=== PATIENT | female | born 1995 | race Hispanic/Latino ===

== ENCOUNTER 2018-10-01 12:29 | Inpatient (IN) | payer OTHER ==
[2018-10-01 12:47] VITALS: BMI 38.4
[2018-10-01] MEDS ORDERED: Lidocaine 1% (PF) 30 ML VIAL SC PRN (12:55)
[2018-10-01] MEDS ORDERED: NS / Oxytocin 40 units/1000ml 1,000 ML IV PRN (12:55)
[2018-10-01] MEDS ORDERED: Butorphanol Tartrate 1 MG/ML VIAL SLOW IVP PRN (12:55)
[2018-10-01] MEDS ORDERED: Ibuprofen 800 MG TAB PO PRN (12:55)
[2018-10-01] MEDS ORDERED: HYDROcodone/Acetaminophen 5/325 mg Tablet PO PRN ×2 (12:55)
[2018-10-01] MEDS ORDERED: Penicillin G Potassium 5 MILL.UNITS VIAL ONE (12:55)
[2018-10-01] MEDS ORDERED: Promethazine HCl 25 MG/ML VIAL IM PRN (12:55)
--- NOTE | 2018-10-01 12:59 | PDOC.LDHP ---
Labor and Delivery H&P HPI: Patient in Triage Encounter at [address] Crawford HPI: 22yo (Terms x 1 in past, one ectopic) at early term, here for contractions since 0900. No LOF. Some thick dsch (greenish) previously. No VB, no HEATH. Good FM. States GBS positive ("would need antibiotics in labor") Current gestational age (weeks): 38 (2 days) Dating criteria: last menstrual period Grav: 3 Para: 1 OB History Details: x 1 Current complications: none Abnormal US findings: No Past Medical History: [employer] HX: Dr Khan here in 2016 eval and treated for ectopic with MTX; Also, her notes back then stated CHLAMYDIA treatment. Current medications: pre-akash vitamins Allergies/Adverse Reactions: Allergies Allergy/AdvReac Type Severity Reaction Status Date / Time No Known Allergies Allergy Verified 10/01/18 12:53 Social history: none - Physical Exam Vital signs reviewed and normal: yes (118/72 Afebrile Pulse 108) General: NAD Heart: RRR Lungs: CTAB Abdomen: gravid (gravid, size consistent with dates; EFW approx 6#) FHT: category 1 Seth Ward contractions every: every 2-3 - Vaginal Exam cm dilated: 5 ( to 6cm; BOWI) Effacement: 75% (80%) Station: -1 - Assessment L&D Assessment: term patient in labor (Earlt term, suspected GBS pos by HX as chart not here) - Plan Plan: admit to L&D, GBS antibiotic prophylaxis, informed consent obtained, anesthesia consult for pain management, other (I have send Dr Crawford a text without HPI to inform him of the admission, awaiting confirmation)
[2018-10-01] MEDS ORDERED: Penicillin G Potassium 5 MILL.UNITS in Sodium Chloride 0.9% 100 ML IVPB SCH (13:00)
[2018-10-01] MEDS ORDERED: Fentanyl 4 mcg/Bup 0.1% Cadd 100 ML ONE (13:04)
[2018-10-01] MEDS: Lactated Ringer's 1,000 ML IV SCH ×2 (13:10→14:05)
[2018-10-01 13:21] LABS: Hemoglobin 9.8 g/dL (12.0-16.0); Mean Corpuscular HGB CONC 31.1 g/dL (32.0-36.0); Mean Corpuscular Hemoglobin 23.1 pg (25.0-35.0); Mean Corpuscular Volume 74.3 fL (78.0-98.0); Mean Platelet Volume 8.9 fL (7.4-10.4); Platelet Count 254 thou/uL (130-400); RBC Distribution Width 18.9 % (11.5-14.5); Red Blood Cell (RBC) Count 4.24 mill/uL (4.00-5.20); White Blood Cell (WBC) Count 16.1 thou/uL (4.8-10.8)
[2018-10-01 14:02] LABS: Syphilis Antibody Nonreactive (Nonreactive); Syphilis Antibody Index 0.03 S/CO (<1.00 Non-Reactive)
[2018-10-01 14:03] LABS: HBSAg Index 0.22 S/CO (0-0.99); HIV (1/2) Antibody/Antigen Non-Reactive (NonReactive); HIV 1/2 INDEX 0.14 S/CO (<1.00); Hep B Surf Ag Non-Reactive S/CO (NonReactive)
[2018-10-01] MEDS ORDERED: Lactated Ringer's 500 ML IV PRN (14:03)
[2018-10-01] MEDS ORDERED: ePHEDrine/0.9% NaCl/PF SYRINGE 50 mg/10 ml SLOW IVP PRN (14:03)
[2018-10-01] MEDS ORDERED: Eucerin (Mineral Oil/Petrolatum,White) 30 gm Jar TOP PRN (14:03)
[2018-10-01] MEDS ORDERED: Naloxone HCl 0.4 mg/ml Vial IVP PRN ×2 (14:03)
[2018-10-01] MEDS ORDERED: Communication Order-Pharmacy FS SCH (14:15)
[2018-10-01] MEDS ORDERED: Penicillin G 2.5 MILL.units 2.5 MILL.UNITS in Premix Bag 1 BAG IVPB SCH (17:00)
[2018-10-01] MEDS ORDERED: Milk Of Magnesia 30 ML UDCUP PO PRN (19:24)
[2018-10-01] MEDS ORDERED: Varicella virus, LIVE 0.5 ML VIAL SC ONE (19:24)
[2018-10-01] MEDS ORDERED: Bisacodyl 10 MG SUPP PR PRN (19:24)
[2018-10-01] MEDS ORDERED: Benzocaine/Menthol 20-0.5% 60 ML CAN TOP PRN (19:24)
[2018-10-01] MEDS ORDERED: diphenhydrAMINE 25 MG CAP PO PRN (19:24)
[2018-10-01] MEDS ORDERED: Lanolin Ointment 7 GM TUBE TOP PRN (19:24)
[2018-10-01] MEDS ORDERED: Measles/Mumps/Rubella 10 MCG/0.5 ML VIAL SC ONE (19:24)
[2018-10-01] MEDS ORDERED: Adacel (T-DAP) 0.5 ML SYRINGE IM ONE (19:24)
[2018-10-01] MEDS ORDERED: Acetaminophen/Codeine 30-300mg Tablet PO PRN ×2 (19:24)
--- NOTE | 2018-10-01 19:28 | PDOC.OPDEL ---
OB Operative/Delivery Note Delivery Dr/Surgeon: Victoriano Richards (RN assist as first assistant) Pre-Delivery Diagnosis: active labor Procedure/Post Delivery Dx: spontaneous vaginal delivery (I arrived within 1 min of being called, but patient progressed to over intact perineum with Marcella Richards (RN) acting as nurse first assist. I arrived as child was delivering. No NC, baby vigorous male.) Anesthesia: epidural - Findings A Sex: male - 1 min: 8 - 5 min: 9 - Additional Findings/Plan Placenta delivered: spontaneous (Ed at 1918, baby was at 1912) Repaired Obstetrical Laceration: none Estimated blood loss: 200; QBL pending Compilations/Other Findings: No NC No complications 3VC, no evidence lacerations Counts correct Post delivery plan: routine recovery
[2018-10-01] MEDS ORDERED: NS / Oxytocin 40 units/1000ml 1,000 ML IV SCH (19:30)
--- NOTE | 2018-10-01 20:02 | PDOC.EVN ---
Event Note - Event Note Event Note: I was just notifed that maternal temp is now 101.4...although , I will start amp and gent for presumed metritis
[2018-10-01] MEDS ORDERED: Gentamicin Sulfate 120 MG in Premix Bag 1 BAG IVPB SCH (20:15)
[2018-10-01] MEDS: Ampicillin 2 GM in Sodium Chloride 0.9% 100 ML IVPB SCH (21:21)
[2018-10-01] MEDS: Ibuprofen 800 MG TAB PO SCH (21:21)
[2018-10-01] MEDS: Docusate Calcium (SURFAK) 240 MG CAP PO SCH (21:21)
[2018-10-02] MEDS: Ampicillin 2 GM in Sodium Chloride 0.9% 100 ML IVPB SCH ×4 (03:03→21:13)
--- NOTE | 2018-10-02 05:09 | PDOC.PP ---
Post Progress Note Post Day #: 0 to 1 Subjective: No complaints, doing well...resting PO intake tolerated: yes Flatus: yes Ambulation: yes Vital Signs (12 hours) Temp Pulse Resp BP Pulse Ox 10/02/18 03:00 98.1 F 89 18 94/51 L 10/01/18 23:54 98.7 F 101 H 18 105/54 L 10/01/18 22:50 100.0 F H 108 H 20 99/49 L 10/01/18 21:50 99.6 F 104 H 20 108/57 L 95 Weight Weight 217 lb Tmax just after delivery was 101...last temp elevation was 100.0 at 2250 10/01 On IV Amp and gent - Physical Examination General: NAD Cardiovascular: no m/r/g Respiratory: clear to auscultation bilaterally Abdominal: + bowel sounds, lochia, no distention, appropriately TTP Extremities: negative homans (B) Neurological: no gross focal deficits Psychiatric: A&Ox3, normal affect Result Diagrams: 10/01/18 13:02 Additional Labs: Post Labs Blood Type O POSITIVE 10/01/18 13:02 Hep Bs Antigen Non-Reactive S/CO (NonReactive) 10/01/18 13:02 (1) fever Code(s): O86.4 - PYREXIA OF UNKNOWN ORIGIN FOLLOWING DELIVERY Status: Acute (2) Vaginal delivery Code(s): O80 - ENCOUNTER FOR FULL-TERM UNCOMPLICATED DELIVERY Status: Acute - Assessment/Plan Patient delivered by 10/01/18 at 1830...will be PPD1 this pm. Plan: 1. we will continue with ABX for at least 24 hours afebrile as temp was immediately 2. She had received amp intrap[artum for GBS...now an amp and gent 3. Possible dsch to home tomorrow if no temp in 24 hours watch today; HCT pending
[2018-10-02] MEDS: Ibuprofen 800 MG TAB PO SCH ×3 (05:53→21:12)
[2018-10-02] MEDS: Gentamicin Sulfate 80 MG in Premix Bag 1 BAG IVPB SCH ×2 (05:54→13:29)
[2018-10-02 05:58] LABS: Hemoglobin 9.7 g/dL (12.0-16.0); Mean Corpuscular Hemoglobin 23.5 pg (25.0-35.0); Mean Corpuscular Volume 75.7 fL (78.0-98.0); Mean Platelet Volume 8.9 fL (7.4-10.4); Platelet Count 233 thou/uL (130-400); RBC Distribution Width 19.3 % (11.5-14.5); Red Blood Cell (RBC) Count 4.15 mill/uL (4.00-5.20); White Blood Cell (WBC) Count 18.7 thou/uL (4.8-10.8)
[2018-10-02] MEDS ORDERED: Bupivacaine HCl 0.5%/Epinephrine 1:200,000/PF 30 ml Vial ONE (07:52)
[2018-10-02] MEDS: Docusate Calcium (SURFAK) 240 MG CAP PO SCH ×2 (08:36→21:13)
[2018-10-02] MEDS: Ferrous Sulfate 325 MG TAB PO SCH ×2 (08:36→16:20)
[2018-10-02] MEDS: Prenatal Vitamin 1 TAB PO SCH (08:36)
[2018-10-02 20:45] VITALS: TEMP 98.1
[2018-10-03] MEDS: Ibuprofen 800 MG TAB PO SCH ×2 (05:18→14:39)
--- NOTE | 2018-10-03 05:55 | PDOC.PP ---
Post Progress Note Post Day #: PPD#2 Subjective: Feels well. ABX stopped last PM after IV infiltrated. Flatus: yes Ambulation: yes Vital Signs (12 hours) Temp Pulse Resp BP Pulse Ox 10/02/18 20:05 98.1 F 100 20 108/56 L 98 Weight Weight 98.43 kg - Physical Examination General: NAD Respiratory: non-labored breathing Abdominal: no distention, appropriately TTP Neurological: no gross focal deficits Psychiatric: normal affect Result Diagrams: 10/02/18 05:46 Additional Labs: Post Labs Blood Type O POSITIVE 10/01/18 13:02 Hep Bs Antigen Non-Reactive S/CO (NonReactive) 10/01/18 13:02 - Assessment/Plan No further temps seen. DC home. Precautions reviewed in detail. RTC in [address] Crawford.
[2018-10-03 08:21] VITALS: BP 110/63
[2018-10-03] MEDS: Docusate Calcium (SURFAK) 240 MG CAP PO SCH (09:37)
[2018-10-03] MEDS: Ferrous Sulfate 325 MG TAB PO SCH (09:37)
[2018-10-03] MEDS: Prenatal Vitamin 1 TAB PO SCH (09:38)
[2018-10-03] MEDS: Gentamicin Sulfate 80 MG in Premix Bag 1 BAG IVPB SCH (09:58)
== END 2018-10-03 14:45 | disposition home or self-care (01) | DRG 807 ==
LOC: L&D/OP 12:29 → L&D 12:56 → 3SW 21:48
PROVIDERS: ADMIT Family Medicine; ATTEND Family Medicine
PROC: 10E0XZZ Delivery of Products of Conception, External Approach (ICD-10-PCS; principal; 2018-10-01)
DX: O99.824 Streptococcus B carrier state complicating childbirth (principal); Z37.0 Single live birth; O86.4 Pyrexia of unknown origin following delivery; Z3A.38 38 weeks gestation of pregnancy
CPT/HCPCS: 36415; 51702; 85027; 86780; 86850; 86900; 86901; 87340; 87389; 90707; 90715; 90716; 99285; J0290; J0670; J1580; J2001; J2540; J7050

== ENCOUNTER 2022-09-30 00:32 | Emergency (ER) | payer OTHER | END 2022-09-30 01:19 | disposition left against medical advice (07) | LOC: ERS 00:32 | DX: Z53.21 Procedure and treatment not carried out due to patient leaving prior to being seen by health care provider (principal) ==